=== PATIENT | female | born 1980 | race Hispanic/Latino ===

== ENCOUNTER 2017-11-14 19:16 | Emergency (ER) | payer OTHER ==
[~2017-11-14 19:16] MED LIST: ALPR-412 PO; DOXE150C PO; DULO60CA44 PO; RISP2TAB76 PO; TRAM50TA4 PO
== END 2017-11-14 20:13 | disposition home or self-care (01) ==
LOC: EDH 19:16
DX: M25.551 Pain in right hip (principal); F41.9 Anxiety disorder, unspecified; F31.9 Bipolar disorder, unspecified; Z88.1 Allergy status to other antibiotic agents
CPT/HCPCS: 99281

== ENCOUNTER 2024-10-27 18:37 | Emergency (ER) | payer SELFPAY ==
[~2024-10-27] VITALS: Ht 154.9 cm; Wt 53.1 kg
[~2024-10-27 18:37] MED LIST changes: -DULO60CA44 PO; +DULO60CA45 PO
[2024-10-27 19:33] LABS: BASOPHILS # (AUTO) 0.03 K/uL (0.00-0.20); BASOPHILS % (AUTO) 0.5 % (0.0-5.0); EOSINOPHILS # (AUTO) 0.19 K/uL (0.00-0.70); EOSINOPHILS % (AUTO) 3.4 % (0.0-8.0); HEMATOCRIT 25.6 % (36-48); IMMATURE GRANULOCYTE ABSOLUTE 0.01 K/uL (0-1); LYMPHOCYTES # (AUTO) 1.4 K/uL (1.0-4.8); LYMPHOCYTES % (AUTO) 25.7 % (21.0-51.0); MEAN CORPUSCULAR HGB CONC 29.3 g/dL (32.0-36.0); MEAN CORPUSCULAR VOLUME 75.1 fL (79-99); MONOCYTES # (AUTO) 0.5 K/uL (0.1-1.0); MONOCYTES % (AUTO) 8.1 % (3.0-13.0); NEUTROPHILS # (AUTO) 3.5 K/uL (1.8-7.7); NEUTROPHILS % (AUTO) 62.1 % (40.0-77.0); PLATELET COUNT (AUTO) 382 K/uL (130-400); RED BLOOD CELL COUNT(AUTO) 3.41 MIL/uL (4.00-5.50); RED CELL DISTRIBUTION WIDTH 20.3 % (11.0-15.5); WHITE BLOOD COUNT (AUTO) 5.6 K/uL (4.8-10.8)
[2024-10-27 19:41] LABS: CREATININE 0.7 mg/dL (0.5-1.0); POTASSIUM 3.8 mmol/L (3.5-5.1)
--- NOTE | 2024-10-27 20:44 | ERN ---
ED Note History of Present Illness Stated Complaint: VAGINAL BLEEDING Chief Complaint: Vaginal Problems/Bleeding Time Seen by MD: 18:43 Time Seen by Midlevel: 18:50 Dictation: 44-year-old female with a history of anemia coming in complaining of vaginal bleeding. Patient states she had vaginal bleeding for four days in his stopped yesterday. Today she is not having any vaginal bleeding. Patient states I want to know from or maybe had a miscarriage denies taking any home test. No other complaints. Allergies: Coded Allergies: Penicillins (Unverified Allergy, Unknown, RASH, 07/31/15) sulfamethoxazole (Unverified Allergy, Unknown, RASH, 07/31/15) trimethoprim (Unverified Allergy, Unknown, RASH, 07/31/15) Home Meds Reported Medications Tramadol Hcl (Tramadol HCl) 50 Mg Tablet, 50 MG PO BID, TAB 07/31/15 Doxepin HCl (Doxepin HCl) 150 Mg Capsule, 150 MG PO HS, CAP 07/31/15 Alprazolam (Alprazolam) 2 Mg Tab.rapdis, 2 MG PO TID, TAB 07/31/15 Risperidone (Risperdal) 2 Mg Tablet, 2 MG PO HS, TAB 07/31/15 Duloxetine HCl (Cymbalta) 60 Mg Capsule.dr, 90 MG PO DAILY, CAP 07/31/15 Past Medical History Past Medical History: No Pertinent History Surgical History: : 4 Para: 2 Aborts: 2 Review of System Dictation Constitutional: Negative for fever,chills, and weight loss Eyes: Negative for injury, pain,redness, and discharge ENT: Negative for injury,pain or swelling Cardiovascular: Negative for chest pain, palpitations, and edema Respiratory: Negative for shortness of breath, cough, and wheezing, Abdomen/GI: Negative for abdominal pain, nausea, vomiting, diarrhea, and constipation Back: Negative for injury and pain : Negative for injury, bleeding and discharge MS/Extremity: Negative for injury and deformity Skin: Negative for rash, and discoloration Neuro: Negative for headache, weakness, numbness, tingling, and seizure Psych: Negative for suicide ideation, homicidal ideation, and hallucinations Review of Systems: was completed Initial Vital Sign VS Vital Signs Date Time Temp Pulse Resp B/P (MAP) Pulse Ox O2 Delivery O2 Flow Rate FiO2 5/18/25 18:39 99.0 98 20 107/69 97 10/27/24 18:56 Room Air* 0 21 Physical Exam Dictation General: awake, alert, NAD Head/Face: Normocephalic, atraumatic Eyes: PERRL, EOMI, vision at baseline ENT: oral cavity clear, TMs clear, no signs of infection Neck: Trachea midline, supple, no nuchal rigidity Cardiovascular: RRR, normal S1/S2, No MRGs, no JVD Respiratory: CTAB, no respiratory distress, No rales or wheezes Abdomen: Soft, non-tender, non-distended, normal bowel sounds, no guarding or rebound. Skin: Warm, dry, normal turgor, no rash MS/Extremity: Pulses equal, no cyanosis, neurovascular intact, FROM Neuro: COAx4, GCS 15, strength 5/5, CN 2-12 intact, normal cerebellar exam, normal gait, Psych: Normal behavior, mood, and affect normal Results (Laboratory/Radiology) Laboratory/Radiology Laboratory Tests Test 10/27/24 19:28 White Blood Count 5.6 K/uL (4.8-10.8) Red Blood Count 3.41 MIL/uL (4.00-5.50) L Hemoglobin 7.5 g/dL (12.0-16.0) L Hematocrit 25.6 % (36-48) L Mean Corpuscular Volume 75.1 fL (79-99) L Mean Corpuscular Hemoglobin 22.0 pg (27.0-33.0) L Mean Corpuscular Hemoglobin Concent 29.3 g/dL (32.0-36.0) L Red Cell Distribution Width 20.3 % (11.0-15.5) H Platelet Count 382 K/uL (130-400) Mean Platelet Volume 9.5 fL (7.5-10.5) Immature Granulocyte % (Auto) 0.2 % (0-1) Neutrophils (%) (Auto) 62.1 % (40.0-77.0) Lymphocytes (%) (Auto) 25.7 % (21.0-51.0) Monocytes (%) (Auto) 8.1 % (3.0-13.0) Eosinophils (%) (Auto) 3.4 % (0.0-8.0) Basophils (%) (Auto) 0.5 % (0.0-5.0) Neutrophils # (Auto) 3.5 K/uL (1.8-7.7) Lymphocytes # (Auto) 1.4 K/uL (1.0-4.8) Monocytes # (Auto) 0.5 K/uL (0.1-1.0) Eosinophils # (Auto) 0.19 K/uL (0.00-0.70) Basophils # (Auto) 0.03 K/uL (0.00-0.20) Absolute Immature Granulocyte (auto 0.01 K/uL (0-1) Nucleated Red Blood Cells 0.0 % (0.0-0.19) Red Blood Cell Morphology See comments Sodium Level 146 mmol/L (136-145) H Potassium Level 3.8 mmol/L (3.5-5.1) Chloride Level 111 mmol/L (101-111) Carbon Dioxide Level 25 mmol/L (21-32) Blood Urea Nitrogen 12 mg/dL (7-18) Creatinine 0.7 mg/dL (0.5-1.0) Glomerular Filtration Rate Calc 109 mL/min (>90) Random Glucose 103 mg/dL (70-105) Total Calcium 7.8 mg/dL (8.5-10.1) L Human Chorionic Gonadotropin, Quant 0 mIU/mL (0-5) Labs Reviewed?: Yes ED Course ED Course Orders Procedure Category Date Status Time Cbc With Differential LAB 10/27/24 Complete 18:47 Basic Metabolic Panel LAB 10/27/24 Complete 18:47 Hcg,Quantitative LAB 10/27/24 Complete 18:47 Vital Signs Date Time Temp Pulse Resp B/P (MAP) Pulse Ox O2 Delivery O2 Flow Rate FiO2 10/27/24 18:56 99.0 98 20 107/69 97 Room Air* 0 21 10/27/24 18:39 99.0 98 20 107/69 97 Medical Decision Making MDM MDM: 44-year-old female with a history of anemia coming in complaining of vaginal bleeding. Patient states she had vaginal bleeding for four days in his stopped yesterday. Today she is not having any vaginal bleeding. Patient states I want to know from or maybe had a miscarriage denies taking any home test. No other complaints.CBC shows no leukocytosis, patient has anemia, hemoglobin is 7.5 and hematocrit is 26. No thrombocytopenia. Glenna julee unremarkable. Patient isn't . Patient states she already has a history of anemia and takes iron supplements at home. Discussed with the patient she needs to follow up outpatient with OBGYN for further evaluation she might need hormonal therapy for her heavy menses. Differential diagnosis: Anemia, miscarriage, early Rationale: Tests considered and ordered secondary to shared decision making include: Previous outside records reviewed: Old ER visits. Risk of complication and/or morbidity or mortality of patient management: None Medications-Per medication reconciliation Need for hospitalization: Patient does not meet criteria for hospitalization. Need for emergency major/minor surgery: No There are no social concerns with this patient. Prescription drug management Prescriptions will include symptomatic care Patient's prior external medical records from other ER visits were reviewed by me as indicated. Prior testing and results from previous visits were reviewed. Prior tests were taken into account with medical decision making and resource utilization, independent historian/historians were used to obtain complete medical history. I independently interpreted the test that were performed, results were reviewed by me and considered findings on radiology if ordered. Medical management and examination interpretation discussions were had by me with other qualified healthcare professionals as indicated for the patient's care. DX & DISP Disposition: Discharge Departure Impression: Primary Impression: Anemia Additional Impression: History of menorrhagia Condition: Stable Additional Instructions: Continue taking your iron supplements. Please follow up with the OBGYN. Return to the hospital if you have any worsening symptoms or your vaginal bleeding returns. Referrals: SELF,REFERRAL (PCP) Time of Disposition: 20:43 I have reviewed the case, and I agree with, Diagnosis and Plan LIZBETH MEHTA NP October 27, 2024 20:44
[2024-10-27 20:49] VITALS: BP 116/72; PULSE 97; RESP 18; TEMP 98.9; O2SAT 98
== END 2024-10-27 20:58 | disposition home or self-care (01) ==
LOC: EEVIPCON 18:37 → EDH 18:37
DX: D64.9 Anemia, unspecified (principal); R10.2 Pelvic and perineal pain; Z79.899 Other long term (current) drug therapy; Z88.0 Allergy status to penicillin; Z88.1 Allergy status to other antibiotic agents; Z88.2 Allergy status to sulfonamides
CPT/HCPCS: 36415; 80048; 84702; 85025; 99283

== ENCOUNTER 2024-11-09 12:06 | Emergency (ER) | payer SELFPAY ==
[~2024-11-09] VITALS: Ht 154.9 cm; Wt 54.4 kg
--- NOTE | 2024-11-09 12:38 | ERN ---
ED Note History of Present Illness Stated Complaint: VAGINAL BLEEDING, ABD PAIN Chief Complaint: Vaginal Problems/Bleeding Time Seen by MD: 12:15 Dictation: PATIENT IS A 44-YEAR-OLD FEMALE COMING IN TODAY WITH HEAVY VAGINAL BLEEDING SHE HAS HAD FOR SEVERAL MONTHS AND HAS BEEN TO THE HOSPITAL MULTIPLE TIMES FOR HIS. WAS HERE ON 10/27 FOR THE SAME COMPLAINT WAS REFERRED TO [facility] HOWEVER SHE SAID SHE IS NOT GOING TO BE FOLLOWING UP WITH THEM BECAUSE SHE HAS NO INSURANCE. NO FEVER NO CHILLS NO NAUSEA VOMITING. NO PRIMARY CARE DOCTOR Allergies: Coded Allergies: Penicillins (Unverified Allergy, Unknown, RASH, 07/31/15) sulfamethoxazole (Unverified Allergy, Unknown, RASH, 07/31/15) trimethoprim (Unverified Allergy, Unknown, RASH, 07/31/15) Home Meds Reported Medications Tramadol Hcl (Tramadol HCl) 50 Mg Tablet, 50 MG PO BID, TAB 07/31/15 Doxepin HCl (Doxepin HCl) 150 Mg Capsule, 150 MG PO HS, CAP 07/31/15 Alprazolam (Alprazolam) 2 Mg Tab.rapdis, 2 MG PO TID, TAB 07/31/15 Risperidone (Risperdal) 2 Mg Tablet, 2 MG PO HS, TAB 07/31/15 Duloxetine HCl (Cymbalta) 60 Mg Capsule.dr, 90 MG PO DAILY, CAP 07/31/15 Past Medical History Past Medical History: Anemia Surgical History: None : 4 Para: 2 Aborts: 2 RN Note Reviewed/Agreed w/PFSH: Yes Review of System Dictation CONSTITUTIONAL: NEGATIVE EXCEPT FOR HPI HEAD/FACE: NEGATIVE EXCEPT FOR HPI EENT: NEGATIVE EXCEPT FOR HPI RESPIRATORY: NEGATIVE EXCEPT FOR HPI GASTROINTESTINAL/ABDOMINAL: NEGATIVE EXCEPT FOR HPI GENITOURINARY: NEGATIVE EXCEPT FOR HPI VAGINAL BLEEDING MUSCULOSKELETAL: NEGATIVE EXCEPT FOR HPI INTEGUMENTARY: NEGATIVE EXCEPT FOR HPI NEUROLOGICAL/PSYCH: NEGATIVE EXCEPT FOR HPI HEMATOLOGIC/LYMPHATIC: NEGATIVE EXCEPT FOR HPI ALL SYSTEMS NEGATIVE, EXCEPT NOTED ABOVE. 13 POINT REVIEW OF SYSTEMS ASSESSED AND ALL NEGATIVE EXCEPT FOR ABOVE. Initial Vital Sign VS Vital Signs Date Time Temp Pulse Resp B/P (MAP) Pulse Ox O2 Delivery O2 Flow Rate FiO2 11/09/24 12:11 98.4 86 20 101/69 100 Room Air 0 11/09/24 12:11 21 Physical Exam Dictation VITAL SIGNS REVIEWED GENERAL APPEARANCE: ALERT, ORIENTED X 3, NO ACUTE DISTRESS, WELL DEVELOPED, NOURISHED. HEAD AND FACE: NON-TRAUMATIC. EYES: PERRL, PINK CONJUNCTIVAS, EYELID NO TRAUMA, ANTERIOR CHAMBER WITH ARCUS SENILIS. EARS: PINNAS INTACT AND NO SIGNS OF TRAUMA OR ERYTHEMA EAR CANALS CLEAR AND NO DISCHARGE TM NO ERYTHEMA NOSE: NO DISCHARGE, NO BLEEDING. OROPHARYNX: MOUTH NORMAL, TONGUE PINK, PHARYNX CLEAR,NO ERYTHEMA, TONSILS NO EXUDATES, NO ABSCESSES NOTED, MUCOUS MEMBRANE MOIST NECK: SUPPLE, NON-TENDER, NO THYROMEGALY, NO MASSES, NO JVD, NO BRUITS BREAST:DEFERRED CHEST:NO TENDERNESS, NO CREPITUS, NO PARADOXICAL MOVEMENT, NO RETRACTIONS LUNGS:CLEAR, WELL-VENTILATED, SYMMETRIC, NO RALES, NO WHEEZING, NO RHONCHI, NO STRIDOR, GOOD BREATH SOUNDS BILATERALLY HEART: REGULAR RATE, REGULAR RHYTHM, NO MURMUR, NO GALLOPS VASCULAR: NO PERIPHERAL EDEMA, ABDOMEN: SOFT, POSITIVE BOWEL SOUNDS, NONDISTENDED, NO GUARDING, NONTENDER, NO REBOUND, NO MASSES NO HEPATOMEGALY, NO SPLENOMEGALY, NO CAM'S SIGN, NO HERNIAS. RECTAL: DEFERRED GENITAL: DEFERRED NEUROLOGICAL: NORMAL SPEECH, MOTOR FUNCTION INTACT, SENSORY FUNCTION INTACT MUSCULOSKELETAL: NECK NONTENDER, FULL RANGE OF MOTION, BACK NONTENDER, FULL RANGE OF MOTION, EXTREMITIES: NONTENDER, FULL RANGE OF MOTION SKIN: COLOR PINK, DRY, NO TURGOR, NO RASH, NO LACERATIONS, NO ABRASIONS, NO CONTUSIONS. LYMPHATIC: DEFERRED Results (Laboratory/Radiology) Laboratory/Radiology Laboratory Tests Test 11/09/24 12:26 White Blood Count 4.5 K/uL (4.8-10.8) L Red Blood Count 3.37 MIL/uL (4.00-5.50) L Hemoglobin 7.5 g/dL (12.0-16.0) L Hematocrit 25.7 % (36-48) L Mean Corpuscular Volume 76.3 fL (79-99) L Mean Corpuscular Hemoglobin 22.3 pg (27.0-33.0) L Mean Corpuscular Hemoglobin Concent 29.2 g/dL (32.0-36.0) L Red Cell Distribution Width 19.7 % (11.0-15.5) H Platelet Count 245 K/uL (130-400) Mean Platelet Volume 10.4 fL (7.5-10.5) Immature Granulocyte % (Auto) 0.2 % (0-1) Neutrophils (%) (Auto) 55.2 % (40.0-77.0) Lymphocytes (%) (Auto) 35.9 % (21.0-51.0) Monocytes (%) (Auto) 6.0 % (3.0-13.0) Eosinophils (%) (Auto) 1.8 % (0.0-8.0) Basophils (%) (Auto) 0.9 % (0.0-5.0) Neutrophils # (Auto) 2.5 K/uL (1.8-7.7) Lymphocytes # (Auto) 1.6 K/uL (1.0-4.8) Monocytes # (Auto) 0.3 K/uL (0.1-1.0) Eosinophils # (Auto) 0.08 K/uL (0.00-0.70) Basophils # (Auto) 0.04 K/uL (0.00-0.20) Absolute Immature Granulocyte (auto 0.01 K/uL (0-1) Nucleated Red Blood Cells 0.0 % (0.0-0.19) Red Blood Cell Morphology See comments Sodium Level 143 mmol/L (136-145) Potassium Level 3.4 mmol/L (3.5-5.1) L Chloride Level 111 mmol/L (101-111) Carbon Dioxide Level 24 mmol/L (21-32) Blood Urea Nitrogen 12 mg/dL (7-18) Creatinine 0.6 mg/dL (0.5-1.0) Glomerular Filtration Rate Calc 113 mL/min (>90) Random Glucose 90 mg/dL (70-105) Total Calcium 8.5 mg/dL (8.5-10.1) Labs Reviewed?: Yes ED Course ED Course Orders Procedure Category Date Status Time Cbc With Differential LAB 11/09/24 Complete 12:35 Basic Metabolic Panel LAB 11/09/24 Complete 12:35 0.9%Nacl 1000ml (Ns PHA 11/09/24 Complete 1000ml) 13:00 Current Medications Medications (Trade) Dose Ordered Sig/Geovanna Route PRN Reason Start Time Stop Time Status Last Admin Dose Admin Sodium Chloride 1,000 ml @ 0 mls/hr ONCE ONCE IV 11/09/24 13:00 11/09/24 13:01 DC 11/09/24 12:57 Vital Signs Date Time Temp Pulse Resp B/P (MAP) Pulse Ox O2 Delivery O2 Flow Rate FiO2 11/09/24 12:11 98.4 86 20 101/69 100 Room Air* 0 21 11/09/24 12:11 98.4 86 20 101/69 100 Room Air 0 1440/SPOKE WITH PATIENT AT LENGTH MADE HER AWARE THAT HER LABS ARE UNREMARKABLE AND UNCHANGED FROM HER LAST VISIT. SHE WAS TOLD THEN TO FOLLOW UP WITH A AN [facility] DOCTOR STATES SHE HAS BEEN HOLDING OFF BECAUSE NO FUNDING I ADVISED HER SHE NEEDED TO FIND ONE IMMEDIATELY TO MANAGE HER MENORRHAGIA AND DYSFUNCTIONAL UTERINE BLEEDING. Medical Decision Making MDM MEDICAL DISCHARGE MAKING BASED ON BASIC LABS FOR VAGINAL BLEEDING PATIENT HAS A CHRONIC ANEMIA NOT PROFOUND ENOUGH FOR HER TRANSFUSION REFERRED TO HER [facility] [employer] DOCTOR AND DX & DISP Disposition: Discharge Departure Impression: Primary Impression: Dysfunctional uterine bleeding Additional Impression: Chronic anemia Condition: Stable Additional Instructions: FOLLOW-UP WITH PRIMARY CARE PROVIDER IN 1 TO 2 DAYS. TAKE MEDICATIONS DIRECTED HERE IN THE EMERGENCY ROOM. OKAY TO CONTINUE HOME MEDICATIONS UNLESS OTHERWISE DISCUSSED DURING YOUR VISIT IN THE EMERGENCY ROOM TODAY. RETURN TO YOUR NEAREST EMERGENCY ROOM IF SYMPTOMS WORSEN OR IF THERE IS NO IMPROVEMENT. CALL 911 IF YOU NEED IMMEDIATE ASSISTANCE. TAKE TYLENOL OR MOTRIN TOIN-IGQ-[id number] NEEDED AND IF NO CONTRAINDICATIONS ARE PRESENT. INCREASE ORAL HYDRATION. A WOUND CULTURE OR URINE CULTURE WAS ORDERED HERE IN THE EMERGENCY ROOM DEPARTMENT PLEASE FOLLOW-UP WITH PRIMARY CARE PROVIDER AND ADVISE THEM TO GET REPEAT PORTS FROM OUR FACILITY. IF YOU HAD ANY ENMANUEL WRAP/SPLINTS THAT WERE APPLIED HERE, PLEASE DO NOT REMOVE THEM UNTIL YOU SEE YOUR PRIMARY CARE OR SPECIALTY. FOLLOW UP WITH YOUR [facility] [employer] DOCTOR IN THE NEXT 1-2 DAYS. Referrals: SELF,REFERRAL (PCP) Time of Disposition: 14:41 I have reviewed the case, and I agree with, Diagnosis and Plan [facility] November 09, 2024 12:38
[2024-11-09] MEDS: 0.9%NACL 1000ML 1,000 ML IV ONE (12:57)
[2024-11-09 13:03] LABS: BASOPHILS # (AUTO) 0.04 K/uL (0.00-0.20); BASOPHILS % (AUTO) 0.9 % (0.0-5.0); EOSINOPHILS # (AUTO) 0.08 K/uL (0.00-0.70); EOSINOPHILS % (AUTO) 1.8 % (0.0-8.0); HEMATOCRIT 25.7 % (36-48); IMMATURE GRANULOCYTE ABSOLUTE 0.01 K/uL (0-1); LYMPHOCYTES # (AUTO) 1.6 K/uL (1.0-4.8); LYMPHOCYTES % (AUTO) 35.9 % (21.0-51.0); MEAN CORPUSCULAR HEMOGLOBIN 22.3 pg (27.0-33.0); MEAN CORPUSCULAR HGB CONC 29.2 g/dL (32.0-36.0); MEAN CORPUSCULAR VOLUME 76.3 fL (79-99); MONOCYTES # (AUTO) 0.3 K/uL (0.1-1.0); NEUTROPHILS # (AUTO) 2.5 K/uL (1.8-7.7); NEUTROPHILS % (AUTO) 55.2 % (40.0-77.0); PLATELET COUNT (AUTO) 245 K/uL (130-400); RED BLOOD CELL COUNT(AUTO) 3.37 MIL/uL (4.00-5.50); RED CELL DISTRIBUTION WIDTH 19.7 % (11.0-15.5); WHITE BLOOD COUNT (AUTO) 4.5 K/uL (4.8-10.8)
[2024-11-09 13:07] LABS: CREATININE 0.6 mg/dL (0.5-1.0); POTASSIUM 3.4 mmol/L (3.5-5.1)
[2024-11-09 15:24] VITALS: BP 105/60; PULSE 76; RESP 15; TEMP 98.6; O2SAT 100
== END 2024-11-09 15:16 | disposition home or self-care (01) ==
LOC: EEVIPCON 12:06 → EDH 12:06
DX: N93.8 Other specified abnormal uterine and vaginal bleeding (principal); D64.9 Anemia, unspecified; Z79.899 Other long term (current) drug therapy; Z88.0 Allergy status to penicillin; Z88.1 Allergy status to other antibiotic agents; Z88.2 Allergy status to sulfonamides
CPT/HCPCS: 99284; 96360; 96361; 80048; 85025; 36415; J7030